=== PATIENT | male | born 1970 | race Caucasian/White ===

== ENCOUNTER 2016-02-23 12:07 | Emergency (ER) | payer OTHER ==
[~2016-02-23] VITALS: Ht 167.6 cm; Wt 70.5 kg
[2016-02-23 12:10] VITALS: BP 144/94; PULSE 67; RESP 22; O2SAT 100
--- NOTE | 2016-02-23 12:26 | ED.REPORT ---
HPI-Chest Pain 40 and Over Date of Service Feb 23, 2016 ED Provider: Moo Bryson DO Patient is a 45 year old male who presents to the ED complaining of chest tightness onset 1130 when he sat down to eat with family. Associated symptoms include SOB, lightheadedness, shakes, diaphoresis, occasional diarrhea, and feeling "out of control". Three of the four times this has happened to him he has been at a restaurant and his symptoms presents as the food arrives. He reports that he is usually able to lay down and talk himself through his symptoms in about an hour. He denies anxiety, nausea, vomiting, hematochezia, or any other symptoms. He reports that his brother gets panic attacks. He takes Aspirin. Nursing Notes Stated Complaint: SOB/CHEST PAIN Chief Complaint: Chest Pain Nursing Notes Reviewed: Yes Allergies: Coded Allergies: No Known Allergies (Unverified Allergy, Unknown, 12/08/14) General Time Seen by MD: 12:24 Chief Complaint Chest pain Hx Obtained From: Patient Arrived By: Walk-in Sudden in Onset?: Yes Onset Occurred: 1 - 4 hours ago Symptom Duration: Since onset Similar Sx Previous: Yes Past Medical History Past Medical History none reported Past Surgical History Hernia repair Family History Grandmother and uncle both had stents placed Smoking History Never Smoker Social History Alcohol Use: 3-5 per day Drug Use: Denies drug use Other Social History: Good social support, , Lives with children, Local resident Ambulatory Status Independent Review of Systems Respiratory: Reports: Shortness of breath Cardiovascular: Reports: Chest pain GI: Reports: Diarrhea, Denies: Hematochezia, Nausea, Vomiting Skin: Reports Diaphoresis Neurologic: Reports: Lightheaded, Shaking Psychiatric: Denies: Anxiety Complete sys rev & neg: except as marked. Physical Exam Initial Vital Signs Vital Signs (First) Date Time Temp Pulse Resp B/P Pulse Ox O2 Delivery O2 Flow Rate FiO2 02/23/16 12:10 36.4 67 22 144/94 100 Room Air Initial VS: Reviewed Head / Eyes: Atraumatic, Normocephalic Neck: Full range of motion Extremities: Vascular intact, Neuro intact Skin: Warm, Dry Neurologic: Alert, Oriented, Nonfocal General/Constitutional: Awake, Alert Behavior: Positive: Anxious (Extremely ) Respiratory / Chest: Atraumatic, Breath sounds NL, Breath sounds = bilat, No respiratory distress Cardiovascular: Heart rate NL, Regular rhythm, Heart sounds NL Abdomen: Atraumatic, Soft, Non-tender Interpretation & Diagnostics Lab Results Interpretation Result Diagram: 02/23/16 1320 02/23/16 1320 Test 02/23/16 13:20 White Blood Count 3.7th/mm3 (3.8-10.1) Red Blood Count 4.84mil/mm3 (4.40-5.80) Hemoglobin 15.4g/dL (13.8-17.2) Hematocrit 44.9% (41.0-50.0) Mean Corpuscular Volume 92.8fL (81-100) Mean Corpuscular Hemoglobin 31.8pg (27.0-35.0) Mean Corpuscular Hemoglobin Concent 34.3% (32.0-37.0) Red Cell Distribution Width 12.5% (12.3-15.4) Platelet Count 154bil/L (150-400) Neutrophils (%) (Auto) 51.1% (40-74) Lymphocytes (%) (Auto) 31.9% (14-46) Monocytes (%) (Auto) 12.2% (4-12) Eosinophils (%) (Auto) 4.3% (0-5) Basophils (%) (Auto) 0.5% (0-3) Sodium Level 139mEq/L (134-144) Potassium Level 4.1mEq/L (3.5-5.2) Chloride Level 102mEq/L (97-108) Carbon Dioxide Level 21mmol/L (18-29) Blood Urea Nitrogen 18mg/dL (6-24) Creatinine 0.85mg/dL (0.76-1.27) Estimat Glomerular Filtration Rate 104mL/min (>59) Glucose Level 104mg/dL (60-99) Calcium Level 9.0mg/dL (8.5-10.1) Magnesium Level 1.8mg/dL (1.6-2.6) Total Bilirubin 0.6mg/dL (0.0-1.2) Aspartate Amino Transf (AST/SGOT) 22U/L (0-50) Alanine Aminotransferase (ALT/SGPT) 22U/L (0-44) Alkaline Phosphatase 40U/L (25-150) Troponin T < 0.010ug/L (0.0-0.011) Total Protein 7.1g/dL (6.4-8.4) Albumin 4.2g/dL (3.4-5.0) ECG Interpretation ECG Interpretation: Sinus rate 71 Time: 12:50 Interpreted by: ED physician X-Ray Chest Interpretation Chest Xray Interpretation: IMPRESSION: No acute cardiopulmonary disease process. Dictated by: Angelina Bowers MD, PhD on 02/23/2016 at 13:03 Approved by: Angelina Bowers MD, PhD on 02/23/2016 at 13:03 View: Portable, 1 view Interpretation / Wet Read by: Interpret - Radiologist Re-Eval/Medical Decision Med Decision/Clinical Course Overall symptoms do not seem consistent with acute coronary syndrome. Troponin negative EKG unremarkable, pain resolved in the ER. Patient will be discharged to continue aspirin, avoid situations that seem to trigger these feelings, follow-up with a primary care for repeat evaluation and probable stress testing. Return and follow-up precautions given. Time of Eval: 14:24 Patient Status: Condition resolved Re-Evaluation/Progress Note: Rechecked patient. He is now pain free. Discussed plan for discharge. Patient understands and agrees with plan. All questions addressed at this time. Counseled Regarding: Diagnosis, Lab results, Need for follow-up, When/why to return to ED Discharge & Departure Primary Impression: Chest pain Disposition: Home Discharge Condition All VS Reviewed: Yes Condition: Stable Additional Instructions: Overall it does not appear that you are having a heart attack. You should continue taking aspirin daily, avoid situations that seem to trigger her symptoms. You should follow-up with the primary care doctor in the next few days who can help further reevaluate your symptoms and help order a stress test. You should return to the ER if you develops recurrent or persistent chest pain symptoms concerning for heart attack. Referrals: Adriano Siddiqui MD (PCP) Scribe Attestation Portions of this note were transcribed by Roro So. I, Dr. Bryson personally performed the history, physical exam and medical decision-making; I reviewed and confirmed the accuracy of the information in the transcribed note. Signed by: Roro So 02/23/16, 1448 copies to: Adriano Siddiqui MD, Timothy S DO Feb 23, 2016 12:26 RORO SO Feb 23, 2016 12:55
[2016-02-23] MEDS ORDERED: Alum-Mag Hydrox-Simeth 30 mL Suspension PO ONE (12:55)
--- NOTE | 2016-02-23 13:05 | DRSVH ---
PROCEDURE: X-RAY CHEST ONE VIEW, PORTABLE ([id number]) INDICATIONS: SOB TECHNIQUE: One view of the chest was acquired. COMPARISON: None. FINDINGS: Surgical changes and devices: None. Lungs and pleura: No pleural effusions or pneumothorax. Lungs are clear. Mediastinum: Mediastinal contours appear normal. Heart size is normal. Bones and chest wall: No suspicious bony lesions. Overlying soft tissues appear unremarkable. IMPRESSION: No acute cardiopulmonary disease process. Dictated by: Angelnia Bowers MD, PhD on 02/23/2016 at 13:03 Approved by: Angelina Bowers MD, PhD on 02/23/2016 at 13:03
[2016-02-23 13:32] LABS: BASOPHILS % (AUTO) 0.5 % (0-3); EOSINOPHILS % (AUTO) 4.3 % (0-5); MONOCYTES % (AUTO) 12.2 % (4-12); Mean Corpuscular Hemoglobin 31.8 pg (27.0-35.0); Mean Corpuscular Volume 92.8 fL (81-100); NEUTROPHILS % (AUTO) 51.1 % (40-74); Platelet Count 154 bil/L (150-400)
[2016-02-23 14:07] VITALS: BP 111/57; PULSE 91; RESP 17; O2SAT 94
[2016-02-23 14:07] LABS: Magnesium 1.8 mg/dL (1.6-2.6)
[2016-02-23 14:14] LABS: TROPONIN T < 0.010 ug/L (0.0-0.011)
[2016-02-23 14:20] VITALS: BP 116/57; PULSE 90; RESP 13; O2SAT 96
[2016-02-23 14:33] VITALS: BP 116/57; PULSE 90; RESP 13; O2SAT 96
== END 2016-02-23 14:32 | disposition home or self-care (01) ==
LOC: SED 12:07
DX: R07.89 Other chest pain (principal); R06.02 Shortness of breath; R42 Dizziness and giddiness; R61 Generalized hyperhidrosis; R19.7 Diarrhea, unspecified; R25.1 Tremor, unspecified
CPT/HCPCS: 36415; 71010; 80053; 83735; 84484; 85025; 96374; 99285; J2060